=== PATIENT | female | born 1950 | race Caucasian/White ===

== ENCOUNTER 2018-09-13 16:00 | Inpatient (IN) | payer OTHER ==
[~2018-09-13] VITALS: Ht 154.9 cm; Wt 74.9 kg
[2018-09-13 16:16] VITALS: Ht 154.9 cm; Wt 74.9 kg
[2018-09-13 17:15] LABS: BASOPHIL % 0.7 % (0-2); PLATELET COUNT 276 x10^3mcL (130-400); RED CELL DISTRIBUTION WIDTH 12.9 % (11.5-14.5)
[2018-09-13 17:22] LABS: CALCIUM 10.1 mg/dL (8.5-10.1); CARBON DIOXIDE 25.9 mmol/L (21-32); CHLORIDE SERUM 104 mmol/L (98-107); CREATININE SERUM 0.9 mg/dL (0.6-1.0); GFR1 > 60 mL/min; GLUCOSE SERUM 102 mg/dL (74-106); POTASSIUM SERUM 3.7 mmol/L (3.5-5.1); SODIUM SERUM 137 mmol/L (136-145)
[2018-09-13 17:26] LABS: ALKALINE PHOSPHATASE 81 U/L (46-116); ALT/SGPT 21 U/L (14-59); AST/SGOT 16 U/L (15-37); BILIRUBIN TOTAL 0.5 mg/dL (0.20-1.00); CHOLESTEROL 197 mg/dL (<200); CHOLESTEROL/HDL RATIO 3.5; HDL CHOLESTEROL 57 mg/dL (40-60); LIPASE 194 IU/L (73-393); TRIGLYCERIDES 102 mg/dL (<150)
[2018-09-13 17:34] LABS: TOTAL PROTEIN, SERUM 8.4 g/dL (6.4-8.2)
[2018-09-13 17:38] LABS: microscopic required? YES; urine erythrocyte NEGATIVE (NEGATIVE)
[2018-09-13 17:38] LABS: FREE T4 1.01 ng/dL (0.76-1.46); T4(THYROXINE) 10.1 ug/dL (4.7-13.3)
[2018-09-13 18:01] LABS: T3 TOTAL 1.34 ng/mL
[2018-09-13 19:30] LABS: AMPHETAMINE QUAL UR NONE DETECTED (See below)
[2018-09-13 20:20] LABS: MAGNESIUM 2.2 mg/dL (1.8-2.4); PHOSPHOROUS 2.5 mg/dL (2.5-4.9)
[2018-09-13 20:34] VITALS: BP 225/99
[2018-09-13 21:30] VITALS: BP 191/97
[2018-09-14] VITALS (12 sets, daily range): BP systolic 155–200; BP diastolic 60–94
[2018-09-14 06:38] LABS: BASOPHIL % 0.7 % (0-2); PLATELET COUNT 249 x10^3mcL (130-400); RED CELL DISTRIBUTION WIDTH 12.9 % (11.5-14.5)
[2018-09-14 07:12] LABS: CALCIUM 9.4 mg/dL (8.5-10.1); CARBON DIOXIDE 24.9 mmol/L (21-32); CHLORIDE SERUM 108 mmol/L (98-107); CREATININE SERUM 0.7 mg/dL (0.6-1.0); GFR1 > 60 mL/min; GLUCOSE SERUM 105 mg/dL (74-106); POTASSIUM SERUM 3.7 mmol/L (3.5-5.1); SODIUM SERUM 144 mmol/L (136-145)
[2018-09-15] VITALS (7 sets, daily range): BP systolic 136–1565; BP diastolic 68–91
[2018-09-15 06:00] LABS: BASOPHIL % 0.9 % (0-2); PLATELET COUNT 280 x10^3mcL (130-400); RED CELL DISTRIBUTION WIDTH 13.3 % (11.5-14.5)
[2018-09-15 06:24] LABS: CALCIUM 10.3 mg/dL (8.5-10.1); CARBON DIOXIDE 26.3 mmol/L (21-32); CHLORIDE SERUM 107 mmol/L (98-107); CREATININE SERUM 0.9 mg/dL (0.6-1.0); GFR1 > 60 mL/min; GLUCOSE SERUM 104 mg/dL (74-106); MAGNESIUM 2.1 mg/dL (1.8-2.4); PHOSPHOROUS 3.8 mg/dL (2.5-4.9); POTASSIUM SERUM 4.2 mmol/L (3.5-5.1); SODIUM SERUM 143 mmol/L (136-145)
[2018-09-16 05:31] VITALS: BP 156/79
[2018-09-16 06:26] LABS: BASOPHIL % 1.1 % (0-2); PLATELET COUNT 258 x10^3mcL (130-400); RED CELL DISTRIBUTION WIDTH 13.2 % (11.5-14.5)
[2018-09-16 06:48] LABS: CALCIUM 10.1 mg/dL (8.5-10.1); CARBON DIOXIDE 25.4 mmol/L (21-32); CHLORIDE SERUM 106 mmol/L (98-107); CREATININE SERUM 0.8 mg/dL (0.6-1.0); GFR1 > 60 mL/min; GLUCOSE SERUM 100 mg/dL (74-106); PHOSPHOROUS 3.8 mg/dL (2.5-4.9); POTASSIUM SERUM 4.2 mmol/L (3.5-5.1); SODIUM SERUM 140 mmol/L (136-145)
[2018-09-16 08:56] VITALS: BP 143/79
[2018-09-16] MEDS ORDERED: TRA100 PO (11:59)
[2018-09-16] MEDS ORDERED: ADA90 PO (11:59)
[2018-09-16] MEDS ORDERED: KEFLEX500 M1 PO (12:00)
[2018-09-16 13:03] VITALS: BP 143/79
[2018-09-16 13:05] VITALS: BP 162/70
== END 2018-09-16 15:06 | disposition home or self-care (01) | DRG 304 ==
LOC: ED 16:00 → DU 18:14
PROVIDERS: General Practice; Internal Medicine; Specialist
DX: I16.0 Hypertensive urgency (principal); N17.0 Acute kidney failure with tubular necrosis; N39.0 Urinary tract infection, site not specified; R80.9 Proteinuria, unspecified; E66.9 Obesity, unspecified; Z68.31 Body mass index [BMI] 31.0-31.9, adult; Z91.14 Patient's other noncompliance with medication regimen
CPT/HCPCS: 83880; 84439; J0696; J2060; J3490; J7030; Q0092

== ENCOUNTER 2018-10-20 14:28 | Emergency (ER) | payer OTHER ==
[~2018-10-20 14:28] MED LIST: ADA90 PO; KEFLEX500 M1 PO; TRA100 PO
[2018-10-20 16:01] LABS: BASOPHIL % 0.8 % (0-2); PLATELET COUNT 270 x10^3mcL (130-400); RED CELL DISTRIBUTION WIDTH 12.9 % (11.5-14.5)
[2018-10-20 16:11] LABS: CALCIUM 10.2 mg/dL (8.5-10.1); CARBON DIOXIDE 25.1 mmol/L (21-32); CHLORIDE SERUM 103 mmol/L (98-107); CREATININE SERUM 0.8 mg/dL (0.6-1.0); GFR1 > 60 mL/min; GLUCOSE SERUM 114 mg/dL (74-106); SODIUM SERUM 138 mmol/L (136-145)
[2018-10-20 16:17] LABS: ALBUMIN 3.7 g/dL (3.4-5.0); ALKALINE PHOSPHATASE 72 U/L (46-116); ALT/SGPT 27 U/L (14-59); AST/SGOT 15 U/L (15-37); BILIRUBIN TOTAL 0.3 mg/dL (0.20-1.00); TOTAL PROTEIN, SERUM 7.7 g/dL (6.4-8.2)
[2018-10-20 19:31] VITALS: BP 140/70
== END 2018-10-20 19:31 | disposition home or self-care (01) ==
LOC: ED 14:28
PROVIDERS: Emergency Medicine
DX: R03.0 Elevated blood-pressure reading, without diagnosis of hypertension (principal); H53.9 Unspecified visual disturbance
CPT/HCPCS: 36415

== ENCOUNTER 2020-11-12 13:21 | Emergency (ER) | payer OTHER ==
[~2020-11-12] VITALS: Ht 154.9 cm; Wt 72.6 kg
[2020-11-12 13:27] VITALS: Ht 154.9 cm; Wt 72.6 kg
[2020-11-12 15:04] VITALS: BP 157/61
== END 2020-11-12 15:04 | disposition home or self-care (01) ==
LOC: ED 13:21
DX: K21.9 Gastro-esophageal reflux disease without esophagitis (principal); R07.81 Pleurodynia; I10 Essential (primary) hypertension